=== PATIENT | male | born 1995 | race Caucasian/White ===

== ENCOUNTER → 2018-05-21 | Outpatient (CLI) | payer OTHER ==
[~2018-05-21] MED LIST: IOPAMIDOL 76% 75 ML INFUS BTL 75 ML ONE
--- NOTE | 2018-05-21 13:30 | RADIOLOGY IMAGING REPORT ---
[place] [facility] [place]: Filipe Montenegro : 1995 MR: [id number] V: [id number] EXAM DATE: ORDERING PHYSICIAN: DEMETRIO CORONADO TECHNOLOGIST: Location: [facility] [place] Patient: Filipe Montenegro : 1995 Visit/Account:[id number] Date of Sevice: 05/21/2018 EXAMINATION: CT head without IV contrast CT head with IV contrast HISTORY: Left submandibular mass for one month. COMPARISON: None. TECHNIQUE: Contiguous axial images were obtained from the skull base to the vertex before and after IV contrast. Sagittal and coronal reformatted images are also submitted. CONTRAST: 75 mL of IV Isovue 370. One of the following dose optimization techniques was utilized in the performance of this exam: Autom ated exposure control; adjustment of the mA and/or kV according to the patient's size; or use of an i terative reconstruction technique. Specific details can be referenced in the facility's radiology C T exam operational policy. FINDINGS: Brain volume: Normal. Ventricles: Normal. Acute ischemic changes: None. Hemorrhage: None. Masses/edema: None. Enhancement: Normal. Cervantes-white: Negative. White matter: Normal. Vessels: Negative. Extra-axial: Negative. Calvarium/scalp: Negative. Skull base/visualized face: Negative. Visualized sinuses/orbits: Mild nasal septal deviation to the right. IMPRESSION: Normal enhanced head CT. No intracranial mass lesion or hemorrhage. No CT evidence of acute infarct . Report Dictated By: Doreen Bhatia MD at 05/21/2018 1:18 PM Report E-Signed By: Doreen Bhatia MD at 05/21/2018 1:26 PM WSN:[id number]
--- NOTE | 2018-05-21 14:00 | RADIOLOGY IMAGING REPORT ---
FACILITY: [facility] - [place] PATIENT NAME: Filipe Montenegro : 1995 MR: [id number] V: [id number] EXAM DATE: ORDERING PHYSICIAN: DEMETRIO CORONADO TECHNOLOGIST: Location: [facility] Patient: Filipe Montenegro : 1995 Visit/Account:[id number] Date of Sevice: 05/21/2018 EXAMINATION: CT neck with IV contrast HISTORY: Left submandibular mass for one month. COMPARISON: None. TECHNIQUE: Spiral scan was obtained from the hard palate through the upper chest during injection o f nonionic iodinated intravenous contrast. Sagittal and coronal reformatted images are also submitte d. CONTRAST: 75 mL of IV Isovue-370. One of the following dose optimization techniques was utilized in the performance of this exam: Autom ated exposure control; adjustment of the mA and/or kV according to the patient's size; or use of an i terative reconstruction technique. Specific details can be referenced in the facility's radiology C T exam operational policy. FINDINGS: Masses/lesions: There is a marker placed at the site indicated indicated by the patient. There is a n adjacent enhancing cystic and solid lesion in the midline submandibular space slightly eccentric to the left. This lesion measures 3.9 x 2.4 x 2.1 cm. The lesion is mostly hypodense, with a thick en hancing rim and some enhancing internal septations. There is inflammation in the adjacent fat, and t here is an adjacent reactive submental lymph node measuring 1.5 x 0.7 cm (image 43 series 2). The le iram is not immediately adjacent to the hyoid bone, and it is not embedded in the strap muscles. The re is no connection to the sublingual space visualized. There is asymmetric tissue at the right posterior tongue base measuring 1.8 x 1.0 cm (image 38 series 2). This is slightly less dense than the adjacent normal tongue. Airway: Normal. Vessels: Negative. Musculoskeletal/body wall: Negative. Lymph nodes: Reactive submental lymph node described above. Visualized orbits/brain/paranasal sinuses: Visualized intracranial contents are normal. There is mil d nasal septal deviation to the right. Upper chest: Negative. IMPRESSION: 1. 3.9 x 2.4 x 2.1 cm cystic and solid mass in the submandibular space slightly eccentric to the lef t, with inflammation in the adjacent fat. Differential considerations include a recently infected de rmoid or epidermoid cyst, or an abnormal lymph node. ENT consultation is recommended for further cathy luation. 2. 1.5 x 0.7 cm reactive submental lymph node. 3. 1.8 x 1.0 cm asymmetric tissue at the right posterior tongue base. This could be a vallecular mu cous retention cyst, versus neoplasm or lymphoid hyperplasia. Direct inspection is recommended, and if no lesion is visualized on exam, MRI of the neck without and with IV contrast is recommended for f urther evaluation. These findings were discussed with DEMETRIO CORONADO at 05/21/2018 1:48 PM. Report Dictated By: Doreen Bhatia MD at 05/21/2018 1:26 PM Report E-Signed By: Doreen Bhatia MD at 05/21/2018 1:56 PM WSN:[id number]
== END ==
LOC: CT 10:29
PROVIDERS: ATTEND Nurse Practitioner Family
DX: J34.2 Deviated nasal septum (principal); R59.0 Localized enlarged lymph nodes
CPT/HCPCS: 70470; 70491; Q9967

== ENCOUNTER 2019-01-20 00:37 | Emergency (ER) | payer OTHER ==
[~2019-01-20 00:37] MED LIST changes: +AMOX-559 PO; -IOPAMIDOL 76% 75 ML INFUS BTL 75 ML ONE
--- NOTE | 2019-01-20 00:46 | ER Report ---
History and Physical Time Seen By MD: 00:46 HPI/ROS CHIEF COMPLAINT: sob HISTORY OF PRESENT ILLNESS: PT sent to [place] 3 days ago and vaped marijuana. States since then he has been feeling sob. No cough or cold symptoms. Pt states that he feels like he cant get a full breath in. no pain with breathing. symptoms worse when he tries to lie flat. never had this happen before REVIEW OF SYSTEMS: Constitutional: No fever, no chills. Eyes: No discharge. ENT: No sore throat. Cardiovascular: No chest pain, no palpitations. Respiratory: No cough, + shortness of breath. Gastrointestinal: No abdominal pain, no vomiting. Genitourinary: No hematuria. Musculoskeletal: No back pain. Skin: No rashes. Neurological: No headache. Allergies: Coded Allergies: No Known Drug Allergies (Unverified , 01/20/19) Home Meds Discontinued Scripts Amoxicillin/Pot Clav 875-125 Mg Tab (AUGMENTIN 875-125 TABLET) 1 Each Tablet, 1 TAB PO Q12H for 10 Days, #20 TAB Prov:ASHA ALEXANDER JR, MD 06/25/18 Past Medical/Surgical History Pmhx and Pshx; non contribuitory Reviewed Nurses Notes: Yes Smoking Status: Never Smoker Hx Substance Use Disorder: Yes Hx Alcohol Use: Yes Constitutional Vital Sign - Last 24 Hours 01/20/19 01/20/19 01/20/19 01/20/19 00:45 00:52 01:00 01:13 Temp 98.0 Pulse 81 ??? 65 Resp 18 9 18 B/P (MAP) 133/109 123/65 (84) Pulse Ox 96 87 O2 Delivery Room Air 01/20/19 01/20/19 01/20/19 01/20/19 01:13 01:20 01:22 01:37 Pulse 65 67 68 Resp 18 15 33 Pulse Ox 95 93 94 O2 Delivery Room Air 01/20/19 01/20/19 01/20/19 01:52 02:00 02:07 Pulse 62 ??? Resp B/P (MAP) 126/99 (108) Pulse Ox 95 90 Physical Exam General Appearance: The patient is alert, has no immediate need for airway protection and no signs of toxicity. Eyes: Pupils equal and round no pallor or injection, EOMI ENT: no pharyngeal erythema or exudates, Mucous membranes are moist Respiratory: There are no retractions, lungs are clear to auscultation. Cardiovascular: Regular rate and rhythm. pulses are equal and symmetrical Gastrointestinal: Abdomen is soft and non tender, no masses, bowel sounds normal, no guarding, no rigidity or rebound Neurological: Cranial nerves II-XII grossly intact, no sensory or motor loss Skin: Warm and dry, no rashes. Musculoskeletal: Neck is supple non tender, no vertebral tenderness Extremities are nontender, nonswollen and have full range of motion. DIFFERENTIAL DIAGNOSIS: After history and physical exam differential diagnosis was considered for pneumomediastinum, PE, anxiety, bronchospasm, pericarditis Medical Decision Making Data Points Result Diagram: 01/20/19 0112 01/20/19 0112 Laboratory Hematology Test 01/20/19 01:12 Red Blood Count 5.82 M/uL (4.00-5.60) Mean Corpuscular Volume 87.9 fL (80.0-96.0) Mean Corpuscular Hemoglobin 30.1 pg (26.0-33.0) Mean Corpuscular Hemoglobin Concent 34.2 g/dL (32.0-36.0) Red Cell Distribution Width 13.0 % (11.5-14.5) Mean Platelet Volume 8.8 fL (7.2-11.1) Neutrophils (%) (Auto) 57.6 % (39.4-72.5) Lymphocytes (%) (Auto) 32.8 % (17.6-49.6) Monocytes (%) (Auto) 8.2 % (4.1-12.4) Eosinophils (%) (Auto) 0.5 % (0.4-6.7) Basophils (%) (Auto) 0.9 % (0.3-1.4) Nucleated RBC Relative Count (auto) 0.0 /100WBC Neutrophils # (Auto) 4.2 K/uL (2.0-7.4) Lymphocytes # (Auto) 2.4 K/uL (1.3-3.6) Monocytes # (Auto) 0.6 K/uL (0.3-1.0) Eosinophils # (Auto) 0.0 K/uL (0.0-0.5) Basophils # (Auto) 0.1 K/uL (0.0-0.1) Nucleated RBC Absolute Count (auto) 0.00 K/uL D-Dimer Quantitative (PE/DVT) < 0.27 ug/ml (0-0.50) Sodium Level 138 mmol/L (137-145) Potassium Level 3.5 mmol/L (3.5-5.0) Chloride Level 104 mmol/L (98-107) Carbon Dioxide Level 27 mmol/L (22-30) Blood Urea Nitrogen 17 mg/dl (9-21) Creatinine 1.30 mg/dl (0.66-1.25) Glomerular Filtration Rate Calc > 60.0 Random Glucose 96 mg/dl (75-110) Calcium Level 9.5 mg/dl (8.4-10.2) Troponin I < 0.012 ng/ml Chemistry Test 01/20/19 01:12 White Blood Count 7.2 k/uL (4.5-11.0) Red Blood Count 5.82 M/uL (4.00-5.60) Hemoglobin 17.5 g/dL (14.0-18.0) Hematocrit 51.1 % (42.0-52.0) Mean Corpuscular Volume 87.9 fL (80.0-96.0) Mean Corpuscular Hemoglobin 30.1 pg (26.0-33.0) Mean Corpuscular Hemoglobin Concent 34.2 g/dL (32.0-36.0) Red Cell Distribution Width 13.0 % (11.5-14.5) Platelet Count 304 K/uL (150-450) Mean Platelet Volume 8.8 fL (7.2-11.1) Neutrophils (%) (Auto) 57.6 % (39.4-72.5) Lymphocytes (%) (Auto) 32.8 % (17.6-49.6) Monocytes (%) (Auto) 8.2 % (4.1-12.4) Eosinophils (%) (Auto) 0.5 % (0.4-6.7) Basophils (%) (Auto) 0.9 % (0.3-1.4) Nucleated RBC Relative Count (auto) 0.0 /100WBC Neutrophils # (Auto) 4.2 K/uL (2.0-7.4) Lymphocytes # (Auto) 2.4 K/uL (1.3-3.6) Monocytes # (Auto) 0.6 K/uL (0.3-1.0) Eosinophils # (Auto) 0.0 K/uL (0.0-0.5) Basophils # (Auto) 0.1 K/uL (0.0-0.1) Nucleated RBC Absolute Count (auto) 0.00 K/uL D-Dimer Quantitative (PE/DVT) < 0.27 ug/ml (0-0.50) Glomerular Filtration Rate Calc > 60.0 Calcium Level 9.5 mg/dl (8.4-10.2) Troponin I < 0.012 ng/ml Coagulation Test 01/20/19 01:12 D-Dimer Quantitative (PE/DVT) < 0.27 ug/ml EKG/Imaging EKG Interpretation Sinus arrhythmia at [address] wave changes Imaging napd; no cardiomegally ED Course/Re-evaluation ED Course check ekg and labs. will see if neb helps pt feel it is easier to breath. 01/20/2019 2:33:28 am Pt states he felt better after the nebulizer treatment. Pts lungs sounds are still clear. xray is stable and labs are normal accept for mild dehydration. Pt states he will drink water. will d/c to follow up [facility] if symptoms do not improve. Pt also told to stay away from [facility] which can cause symptoms of anxiety. Will send home [facility] inhaler. Decision to Disposition Date: January 20, 2019 Decision to Disposition Time: 02:35 Depart Departure Latest Vital Signs Vital Signs Date Time Temp Pulse Resp B/P (MAP) Pulse Ox O2 Delivery O2 Flow Rate FiO2 01/20/19 02:07 ??? 90 01/20/19 02:00 126/99 (108) 01/20/19 01:52 27 01/20/19 01:13 Room Air 01/20/19 00:45 98.0 Impression: Primary Impression: Dyspnea Additional Impression: Mild dehydration Condition: Improved Disposition: HOME OR SELF-CARE Referrals: SAM HENDRIX MD application development intern (lung specialist) New Scripts No Active Prescriptions or Reported Meds Patient Instructions: Dyspnea (ED) Additional Instructions: Your xray today showed no acute injury to your lungs. Your blood work did show you have mild dehydration. Recommend you drink more water. Ventolin inhaler you may take 2 puffs every 4 hours to help you breath. I have provided you with the name of a application development intern (lung specialist). If our symptoms do not improve then you should follow up with pulmonary. Problem Qualifiers Primary Impression: Dyspnea Dyspnea type: shortness of breath Qualified Codes: R06.02 - Shortness of breath MARIAH ROMAN DO January 20, 2019 00:46
[2019-01-20] MEDS ORDERED: ALBUTEROL/IPRATROPIUM 3 ML NEB NEB ONE (00:55)
[2019-01-20 01:19] LABS: PLATELET COUNT, AUTOMATED 304 K/uL (150-450)
--- NOTE | 2019-01-20 01:46 | EKG ---
FACILITY: [facility] PATIENT NAME: TURNER ASHLEY : [id number] MR: [id number] V: [id number] EXAM DATE: ORDERING PHYSICIAN: MARIAH ROMAN TECHNOLOGIST: Test Reason : SOB Blood Pressure : / mmHG Vent. Rate : 066 BPM Atrial Rate : 066 BPM P-R Int : 144 ms QRS Dur : 088 ms QT Int : 388 ms P-R-T Axes : 075 095 065 degrees QTc Int : 406 ms Sinus rhythm with marked sinus arrhythmia Nonspecific ST abnormality Abnormal ECG Artifact in limb leads - repeat if needed No previous ECGs available Confirmed by COLTON VELAZQUEZ ([id number]) on 01/20/2019 5:39:23 AM Referred By: Confirmed By:COLTON VELAZQUEZ
--- NOTE | 2019-01-20 01:48 | RADIOLOGY IMAGING REPORT ---
FACILITY: [facility] PATIENT NAME: Filipe Montenegro : 1995 MR: [id number] V: [id number] EXAM DATE: ORDERING PHYSICIAN: MARIAH ROMAN TECHNOLOGIST: [place] [facility] [place]: Filipe Montenegro : 1995 Visit/Account:[id number] Date of Sevice: 01/20/2019 TWO VIEW CHEST 01/20/2019 1:36 AM. INDICATION: Shortness of breath for 3 days. COMPARISON: None. FINDINGS: Lungs are well-expanded. The lungs are clear. No pneumothorax or pleural effusion. Heart size is normal. IMPRESSION: No acute abnormality. Report Dictated By: Guevara Hernandez MD at 01/20/2019 1:44 AM Report E-Signed By: Guevara Hernandez MD at 01/20/2019 1:44 AM WSN:[id number]
[2019-01-20] MEDS ORDERED: ALBUTEROL 8 GM INHALER INH ONE (02:30)
[2019-01-20 02:49] VITALS: BP 104/81
== END 2019-01-20 02:53 | disposition home or self-care (01) ==
LOC: ER 00:49
DX: R06.02 Shortness of breath (principal); E86.0 Dehydration
CPT/HCPCS: 71046; 84484; 85025; 85379; 93005; 94640; 99284; J7620; 82310; 82374; 82435; 82565; 82947; 84132; 84295; 84520